=== PATIENT | female | born 1955 | race Caucasian/White ===

== ENCOUNTER 2020-10-22 10:30 | Emergency (ER) | payer MEDICARE, MEDICAID ==
[~2020-10-22] VITALS: Ht 129.5 cm; Wt 50.0 kg
[2020-10-22 10:33] VITALS: BP 136/77
[2020-10-22] MEDS ORDERED: LORazepam 1 MG tablet PO ONE (12:00)
[2020-10-22] MEDS ORDERED: LORazepam 0.5 MG tablet PO ONE (12:05)
--- NOTE | 2020-10-22 12:25 | NUR ---
PT not cooperative with diagnostics, ALBERT Tong aware.
== END 2020-10-22 13:20 | disposition home or self-care (01) ==
LOC: ER 10:31
DX: R07.81 Pleurodynia (principal); Q90.9 Down syndrome, unspecified; W18.39XA Other fall on same level, initial encounter; Y93.89 Activity, other specified; Y92.89 Other specified places as the place of occurrence of the external cause; Y99.8 Other external cause status
CPT/HCPCS: 99284

== ENCOUNTER 2024-06-23 14:13 | Emergency (ER) | payer MEDICARE, MEDICAID ==
[~2024-06-23] VITALS: Ht 132.1 cm; Wt 44.5 kg
[2024-06-23] MEDS: haloperidol lactate 5mg/ml inj IM ONE (15:23)
[2024-06-23] MEDS: normal saline 1000ML IV soln IV ONE (16:21)
[2024-06-23] MEDS: CefTRIAXone 2gm/D5W 50ml BAG 50 ML IV ONE (16:26)
[2024-06-23 16:33] LABS: BASOPHILS # (AUTO) 0.1 X10'3 (0-0.2); BASOPHILS % (AUTO) 0.8 % (0-1); EOSINOPHILS # (AUTO) 0.1 X10'3 (0-0.9); EOSINOPHILS % (AUTO) 1.7 % (0-6); HEMATOCRIT 43.6 % (35.0-45.0); HEMOGLOBIN 14.4 g/dl (12.0-16.0); LYMPHOCYTES # (AUTO) 1.3 X10'3 (1.1-4.8); LYMPHOCYTES % (AUTO) 19.9 % (21-51); MEAN CORPUSCULAR HEMOGLOBIN 34.2 PG (27.0-31.0); MEAN CORPUSCULAR HGB CONC 32.9 g/dL (33.0-36.5); MEAN CORPUSCULAR VOLUME 103.9 FL (78-98); MEAN PLATELET VOLUME 9.6 FL (7.4-10.4); MONOCYTES # (AUTO) 0.4 X10'3 (0-0.9); MONOCYTES % (AUTO) 6.6 % (2-12); NEUTROPHILS # (AUTO) 4.8 X10'3 (1.8-7.7); PLATELET COUNT 149 X10'3 (140-440); RED CELL DISTRIBUTION WIDTH 14.4 % (11.5-14.5); WHITE BLOOD COUNT 6.7 X10'3 (4.5-11.0)
[2024-06-23 16:43] LABS: BILIRUBIN,URINE SMALL (Neg); CLARITY,URINE SLIGHTLY CLOUDY (Clear); COLOR,URINE YELLOW (Yellow); GLUCOSE, URINE NEGATIVE (Neg); KETONES,URINE TRACE mg/dl (Neg); LEUKOCYTE ESTERASE ,URINE NEGATIVE (Neg); NITRITES, URINE NEGATIVE (Neg); OCCULT BLOOD,URINE NEGATIVE (Neg); PROTEIN,URINE NEGATIVE (Neg); UROBILINOGEN,URINE 0.2 E.U/dL (0.2-1.0)
[2024-06-23 16:45] LABS: ALBUMIN 3.1 G/DL (3.4-5.0); ANION GAP 6 (8-16); BLOOD UREA NITROGEN 17 MG/DL (7-18); BUN/CREATININE RATIO 17.5 (10.0-20.0); CALCIUM 9.1 MG/DL (8.5-10.1); CREATININE 0.97 MG/DL (0.40-0.90); GLUCOSE 113 MG/DL (70-104); MAGNESIUM 2.4 MG/DL (1.5-2.4); POTASSIUM 4.2 MMOL/L (3.5-5.1); SODIUM 149 MMOL/L (135-145); TOTAL CARBON DIOXIDE 30.6 MMOL/L (24-32); eCRCL 24 ML/MIN; eGFR 57 ML/MIN
[2024-06-23 16:48] LABS: MUCUS STRANDS MANY /LPF (Neg); SQUAMOUS EPITHELIAL CELL,UR FEW /LPF (FEW); UA COLLECTION TYPE NON-SPECIFIED
[2024-06-23 16:51] LABS: BACTERIA,URINE FEW /HPF (Neg); CAL OXALATE CRYSTALS 3+ /HPF (NEGATIVE); RBC,URINE 0-2 /HPF (0-2); WBC,URINE 0-4 /HPF (0-4)
[2024-06-23 16:52] LABS: CHLORIDE 112 MMOL/L (99-107)
[2024-06-23] MEDS: normal saline 1000ML IV soln IVB ONE (19:09)
[2024-06-23] MEDS: FOSFOMYCIN TROMETHAMINE 3 GM PACKET PO ONE (19:47)
[2024-06-23 22:29] VITALS: BP 107/75; PULSE 88; RESP 18; TEMP 98.2; O2SAT 98
== END 2024-06-23 22:31 | disposition home or self-care (01) ==
LOC: ER 14:13
DX: N39.0 Urinary tract infection, site not specified (principal); E86.0 Dehydration; R40.4 Transient alteration of awareness
CPT/HCPCS: 36415; 71045; 80048; 81001; 83605; 83735; 84145; 85025; 87040; 96361; 96365; 96366; 96372; 99285; C1758; J0696; J1630; J7030

== ENCOUNTER 2024-06-28 20:56 | Emergency (ER) | payer MEDICARE, MEDICAID ==
[~2024-06-28] VITALS: Ht 144.8 cm; Wt 44.8 kg
[2024-06-28] MEDS ORDERED: DIPH25CA83 PO (21:44)
[2024-06-28] MEDS ORDERED: KEN0.1O TOP (21:44)
[2024-06-28] MEDS ORDERED: PRED10TA23 PO (21:44)
[2024-06-28 22:08] VITALS: BP 140/80; PULSE 75; RESP 15; TEMP 98.1; O2SAT 97
== END 2024-06-28 22:10 | disposition home or self-care (01) ==
LOC: ER 20:57
DX: L42 Pityriasis rosea (principal); Z88.8 Allergy status to other drugs, medicaments and biological substances
CPT/HCPCS: 99284

== ENCOUNTER 2025-03-09 11:49 | Emergency (ER) | payer MEDICARE, MEDICAID ==
[~2025-03-09] VITALS: Ht 144.8 cm; Wt 55.0 kg
[~2025-03-09 11:49] MED LIST: DIPH25CA83 PO
--- NOTE | 2025-03-09 12:01 | ELECTROCARDIOGRAPH REPORT ---
[facility] Test Date: 2025-03-09 Test Time: 11:58:56 Pat Name: JOE SON Department: [facility]- Patient ID: [id number] Room: Gender: F Food Aide: : 1955 Requested By: DARLINE SLOAN Order Number: [id number] Reading MD: Measurements Intervals [place] Rate: 104 P: 71 ID: [id number] QRS: 55 QRSD: 106 T: 29 QT: 372 QTc: 490 Interpretive Statements Sinus tachycardia Ventricular premature complex Prolonged ID interval Probable left atrial enlargement Please click the below link to view image of tracing.
--- NOTE | 2025-03-09 12:12 | Physician Documentation ---
History of Present Illness ~ Chief Complaint: Mechanical Fall Stated Complaint: SZ Time Seen by MD: 11:50 HPI 69-year-old female with a history of Down syndrome presenting from a residential facility with a report of a seizure. The patient is nonverbal and can not provide history. See history was obtained from her head still operator who states that the patient was going to the bathroom when she suddenly had a seizure and fell forward. Patient hit her lip on the ground. The seizure lasted for several minutes and then resolved on its own. He states that initially the patient was very confused and out of it but now appears to be back at her normal baseline. Patient is nonverbal at baseline due to her down syndrome. No reports of any other injuries aside from slight swelling of her upper lip. Patient does have a history of seizures but has only had one other seizure many years ago. 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 CONST: Patient has features of Down syndrome, nonverbal and fidgety HENT: Head Atraumatic EYES: Pupils are equal, round and reactive to light. Normal conjunctiva NECK: Normal range of motion. Supple. CARDIO: Normal rate and regular rhythm. No murmurs, rubs, or gallops. S1, S2. PULM/CHEST: No respiratory distress. Lungs clear to auscultation. No wheeze ABD: Soft and nontender. Nondistended. Bowel sounds normal. No guarding. : Exam deferred MSK: No edema. No deformity. NEURO: Nonverbal, awake, does not converse or respond and listened to commands SKIN: Warm and dry. PSYCH: Patient visits around, avoids eye contact, nonverbal Progress Results/Orders Results/Orders Orders - DARLINE SLOAN MD Chest,Single View (03/09/25 12:40) Monitor (03/09/25 11:51) Saline Lock (03/09/25 11:51) Oxygen (03/09/25 11:51) Ct Head (03/09/25 14:16) Urinalysis (03/09/25 12:07) Hs Troponin I W Calculations (03/09/25 16:15) Completed Orders - DARLINE SLOAN MD Chest,Single View (03/09/25 12:40) Cbc/Diff (03/09/25 11:51) PBNP (03/09/25 11:51) Electrocardiogram (03/09/25 11:51) CMP (03/09/25 11:51) Hs Troponin I W Calculations (03/09/25 11:51) Hs Troponin I W Calculations (03/09/25 14:51) Diazepam Inj (Valium Inj) (03/09/25 12:05) Ct Head (03/09/25 14:16) Diazepam Inj (Valium Inj) (03/09/25 13:35) Medications Received in ER Medications (Trade) Dose Ordered Sig/Sabino Route PRN Reason Start Time Stop Time Status Last Admin Dose Admin (Valium inj) 5 mg ONCE ONCE IV 03/09/25 12:05 03/09/25 12:07 DC 03/09/25 12:15 5 MG (Valium inj) 5 mg ONCE ONCE IV 03/09/25 13:35 03/09/25 13:36 DC 03/09/25 13:57 5 MG Vital Signs 03/09/25 03/09/25 03/09/25 03/09/25 11:52 12:15 14:00 17:18 Temp 97.8 97.8 97.8 Pulse 66 69 68 Resp 16 18 18 18 B/P (MAP) 110/62 118/81 (93) 120/54 Pulse Ox 99 96 99 O2 Flow Rate 0 0 Laboratory Tests Test 03/09/25 13:14 03/09/25 15:33 White Blood Count 7.3 Red Blood Count 4.25 Hemoglobin 14.7 Hematocrit 42.6 Mean Corpuscular Volume 100.2 H Mean Corpuscular Hemoglobin 34.5 H Mean Corpuscular Hemoglobin Concent 34.4 Red Cell Distribution Width 13.0 Platelet Count 161 Mean Platelet Volume 8.7 Neutrophils (%) (Auto) 78.0 H Lymphocytes (%) (Auto) 13.0 L Monocytes (%) (Auto) 7.6 Eosinophils (%) (Auto) 0.5 Basophils (%) (Auto) 0.9 Neutrophils # (Auto) 5.7 Lymphocytes # (Auto) 1.0 L Monocytes # (Auto) 0.6 Eosinophils # (Auto) 0.0 Basophils # (Auto) 0.1 CBC Comment Sodium Level 140 Potassium Level 4.2 Chloride Level 104 Carbon Dioxide Level 25.9 Anion Gap 10 Blood Urea Nitrogen 14 Creatinine 0.91 H Estimated GFR/1.73 m2 61 BUN/Creatinine Ratio 15.4 Glucose Level 105 H Calcium Level 8.7 Total Bilirubin 0.4 Aspartate Amino Transf (AST/SGOT) 24 Alanine Aminotransferase (ALT/SGPT) 16 Alkaline Phosphatase 73 Troponin I High Sensitivity 7 9 Pro-B-Type Natriuretic Peptide 115 Total Protein 7.2 Albumin 3.3 L Globulin 3.9 Albumin/Globulin Ratio 0.8 L Chemistry Comments Troponin I High Sens Percent Delta 28 Troponin I Hi Sens Absolute Change 2 EKG/XRAY/CT/US/VASC/MRI EKG : Additional Comment EKG as interpreted by ED MD showing sinus tachycardia with a rate of 104 beats per minute, no ischemia, normal axis Chest X-Ray : Additional Comments EXAM: DI CHEST,SINGLE VIEW Indication: CP Technique: Single frontal view of the chest was obtained Comparison: DI CHEST,SINGLE VIEW on DOS: 06/23/24 FINDINGS: Lines and Tubes: None Lungs: No focal consolidation. Pleura: No effusion. No pneumothorax. Cardiomediastinal contours: Unremarkable Bones: No acute osseous abnormality. IMPRESSION: No acute cardiopulmonary disease. : Impression EXAM: CT CT HEAD INDICATION: seizure EXAM DATE: 03/09/2025 02:14 PM COMPARISON: None TECHNIQUE: CT of the head without intravenous contrast. Radiation Dose Information: CTDI volume is 45.34 mGy. Dose-length product is 946.76 mGy*cm FINDINGS: There is no evidence of acute intracranial hemorrhage, extra-axial collection, mass effect, midline shift, herniation or hydrocephalus. There is global atrophy with periventricular ischemic white matter changes. The ventricles, sulci and cisterns are age appropriate. The rae-white differentiation is intact. The visualized paranasal sinuses and mastoid air cells are clear. The surrounding soft tissues and osseous structures are unremarkable. IMPRESSION: 1. No evidence of acute intracranial hemorrhage, mass effect or hydrocephalus. 2. Global atrophy with periventricular ischemic white matter changes which is more pronounced at patient's chronological age. Medical Decision Making Additional Comment 69-year-old female presenting with a seizure. She does have a history of seizure although she has not had one for many years. Her workup here in the ED including labs and imaging including CT of the head are negative. The patient was a little bit agitated in the ED and was medicated with IV Valium. On reassessment the patient is comfortable and doing well. She did not have any repeat seizures. There is a possibility that she may have a urinary tract infection as there was a pungent odor from her urine. She did not provide us with a urine sample and refused a straight cath. At this point in time I believe it is prudent to treat the UTI empirically. I will prescribe the patient some nitrofurantoin. This possibility that the UTI could have induced the seizure. Patient is stable and safe for discharge back to her residential facility. I did advise and educate the head still operator and all of the findings and advised him of the plan. Patient will be discharged home. Follow up with PCP in the next 2-5 days. Return to the ED with any acutely worsening symptoms. Departure Disposition: 01 HOME / SELF CARE / HOMELESS Impression: Primary Impression: Seizure Additional Impression: UTI (urinary tract infection) Discharge Instructions: Non-Epileptic Seizures, Adult Additional Instructions: Take medications as prescribed. Follow up with primary care physician in the next 2-3 days. Return to the ED with any acutely worsening symptoms. Referrals: NO PRIMARY CARE PROVIDER (PCP) Prescriptions Nitrofurantoin Monohyd/M-Cryst (Macrobid 100 mg Capsule) 100 Mg Capsule 1 CAP PO Q12H for 7 Days, #14 CAP 0 Refills Prov: DARLINE SLOAN MD 03/09/25 Signature Scribe Signature: 1 Attestation: 1 DARLINE SLOAN MD March 09, 2025 12:12
[2025-03-09] MEDS: diazepam inj 5 MG/ML inj. IV ONE ×2 (12:15→13:57)
--- NOTE | 2025-03-09 12:58 | RADIOLOGY REPORT ---
EXAM: DI CHEST,SINGLE VIEW Indication: CP Technique: Single frontal view of the chest was obtained Comparison: DI CHEST,SINGLE VIEW on DOS: 06/23/24 FINDINGS: Lines and Tubes: None Lungs: No focal consolidation. Pleura: No effusion. No pneumothorax. Cardiomediastinal contours: Unremarkable Bones: No acute osseous abnormality. IMPRESSION: No acute cardiopulmonary disease.
[2025-03-09 13:58] LABS: BASOPHILS # (AUTO) 0.1 X10'3 (0-0.2); BASOPHILS % (AUTO) 0.9 % (0-1); EOSINOPHILS % (AUTO) 0.5 % (0-6); HEMATOCRIT 42.6 % (35.0-45.0); HEMOGLOBIN 14.7 g/dl (12.0-16.0); MEAN CORPUSCULAR HEMOGLOBIN 34.5 PG (27.0-31.0); MEAN CORPUSCULAR HGB CONC 34.4 g/dL (33.0-36.5); MEAN CORPUSCULAR VOLUME 100.2 FL (78-98); MEAN PLATELET VOLUME 8.7 FL (7.4-10.4); MONOCYTES # (AUTO) 0.6 X10'3 (0-0.9); MONOCYTES % (AUTO) 7.6 % (2-12); NEUTROPHILS # (AUTO) 5.7 X10'3 (1.8-7.7); PLATELET COUNT 161 X10'3 (140-440); RED BLOOD COUNT 4.25 X10'6 (4.20-5.60); WHITE BLOOD COUNT 7.3 X10'3 (4.5-11.0)
[2025-03-09 14:17] LABS: ALANINE AMINOTRANSFERASE 16 U/L (12-78); ALBUMIN 3.3 G/DL (3.4-5.0); ALBUMIN/GLOBULIN RATIO 0.8 (1.1-1.5); ALKALINE PHOSPHATASE 73 IU/L (46-116); ANION GAP 10 (8-16); ASPARTATE AMINO TRANSFERASE 24 U/L (10-37); BILIRUBIN,TOTAL 0.4 MG/DL (0.1-1.0); BLOOD UREA NITROGEN 14 MG/DL (7-18); BUN/CREATININE RATIO 15.4 (10.0-20.0); CALCIUM 8.7 MG/DL (8.5-10.1); CHLORIDE 104 MMOL/L (99-107); CREATININE 0.91 MG/DL (0.40-0.90); GLUCOSE 105 MG/DL (70-104); POTASSIUM 4.2 MMOL/L (3.5-5.1); PRO BRAIN NATRIURETIC PEPTIDE 115 PG/ML (0-125); SODIUM 140 MMOL/L (135-145); TOTAL CARBON DIOXIDE 25.9 MMOL/L (24-32); TOTAL PROTEIN 7.2 G/DL (6.4-8.2); eCRCL 36 ML/MIN; eGFR 61 ML/MIN
--- NOTE | 2025-03-09 14:34 | RADIOLOGY REPORT ---
EXAM: CT CT HEAD INDICATION: seizure EXAM DATE: 03/09/2025 02:14 PM COMPARISON: None TECHNIQUE: CT of the head without intravenous contrast. Radiation Dose Information: CTDI volume is 45.34 mGy. Dose-length product is 946.76 mGy*cm FINDINGS: There is no evidence of acute intracranial hemorrhage, extra-axial collection, mass effect, midline s hift, herniation or hydrocephalus. There is global atrophy with periventricular ischemic white matter changes. The ventricles, sulci and cisterns are age appropriate. The rae-white differentiation is i ntact. The visualized paranasal sinuses and mastoid air cells are clear. The surrounding soft tissues and osseous structures are unremarkable. IMPRESSION: 1. No evidence of acute intracranial hemorrhage, mass effect or hydrocephalus. 2. Global atrophy with periventricular ischemic white matter changes which is more pronounced at malik ent's chronological age.
[2025-03-09] MEDS ORDERED: NITR100C6 PO (17:14)
[2025-03-09 17:18] VITALS: BP 120/54; PULSE 68; RESP 18; TEMP 97.8; O2SAT 99
== END 2025-03-09 18:54 | disposition home or self-care (01) ==
LOC: ER 11:49
DX: R56.9 Unspecified convulsions (principal); N39.0 Urinary tract infection, site not specified; M19.90 Unspecified osteoarthritis, unspecified site; Z88.8 Allergy status to other drugs, medicaments and biological substances
CPT/HCPCS: 36415; 70450; 71045; 80053; 83880; 84484; 85025; 93005; 96374; 96376; 99285; J3360

== ENCOUNTER 2025-08-03 11:44 | Emergency (ER) | payer MEDICARE, MEDICAID ==
[~2025-08-03] VITALS: Ht 160 cm; Wt 44.0 kg
[~2025-08-03 11:44] MED LIST changes: +NITR100C6 PO
[2025-08-03 11:45] VITALS: BP 106/58
--- NOTE | 2025-08-03 11:58 | Physician Documentation ---
History of Present Illness General Chief Complaint: Seizure Stated Complaint: SZ Time Seen by MD: 11:50 OK to notify your PCP?: No Source: EMS, EMS notes reviewed Exam Limitations: other (Down syndrome) History of Present Illness Initial Comments 70-year-old female, with history of down syndrome, brought to the ED via EMS from [facility] with concerns of a witnessed seizure shortly prior to arrival. Patient was sitting in the chair when she had an approximate 9 minute seizure. She did not fall out of the chair or hit her head. The patient has a history of seizures, with two other seizures this year, however they normally last around 4 minutes. EMS reports the patient has been worked up for seizures but has never been placed on any medications. EMS adds that she has a history of combativeness. Unable to obtain complete history of present illness due to patient's Down syndrome. 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*, Seizures, Osteoarthritis Other Past Medical History: Down syndrome Past Surgical History: no surgical history Alcohol Use: None Drug Use: none Lives with: Other Lives In: Assisted Care Occupation: disabled Unable to obtain complete PMH: other (Down syndrome) Review of Systems Unable to obtain complete ROS: other (Down syndrome) Physical Exam Physical Exam Vital Signs: RN Vital Signs have been reviewed: Yes, Temperature: 98.5, Source: Temporal, Heart Rate: 91, Respiratory Rate: 18, BP: 106/58, Pulse Oximetry: 98, Weight: 44.000 Oxygen Flow Rate: 0 Pulse Oximetry Reflects: adequate oxygenation Physical Exam VITALS: Reviewed and as above. GENERAL: Active, nonverbal. No apparent distress. HEENT: Normocephalic, atraumatic, PERRL, EOMI, dry mucosa RESPIRATORY: Lungs clear, normal breath sounds, no respiratory distress. CHEST: No accessory muscle use, no retractions CV: Regular rate, rhythm, no edema, no murmur, No: JVD GI: Soft, non-tender, bowels sounds present, no rebound, guarding, or rigidity MUSCULOSKELETAL: No deformities, no edema SKIN: Warm and dry, no rash NEURO: Active, nonverbal. Follows simple commands. Moves all extremities. PSYCH: Unable to assess. Progress Results/Orders Reviewed/noted all lab results: Yes Results/Orders Completed Orders - OHLHE VILLARREAL MD Cbc/Diff (08/03/25 11:47) CMP (08/03/25 11:47) Levetiracetam-[id number]/100ml (Levetira (08/03/25 11:54) Vital Signs 08/03/25 08/03/25 08/03/25 11:45 12:53 13:52 Temp 98.5 98.5 Pulse 91 99 Resp 18 18 B/P (MAP) 106/58 Pulse Ox 98 96 O2 Flow Rate 0 0 Laboratory Tests Test 08/03/25 12:09 White Blood Count 5.7 Red Blood Count 4.14 L Hemoglobin 14.3 Hematocrit 42.5 Mean Corpuscular Volume 102.6 H Mean Corpuscular Hemoglobin 34.5 H Mean Corpuscular Hemoglobin Concent 33.6 Red Cell Distribution Width 13.6 Platelet Count 162 Mean Platelet Volume 8.5 Neutrophils (%) (Auto) 71.2 Lymphocytes (%) (Auto) 20.6 L Monocytes (%) (Auto) 6.1 Eosinophils (%) (Auto) 1.5 Basophils (%) (Auto) 0.6 Neutrophils # (Auto) 4.0 Lymphocytes # (Auto) 1.2 Monocytes # (Auto) 0.3 Eosinophils # (Auto) 0.1 Basophils # (Auto) 0.0 CBC Comment Sodium Level 144 Potassium Level 4.1 Chloride Level 107 Carbon Dioxide Level 32.6 H Anion Gap 4 L Blood Urea Nitrogen 18 Creatinine 0.88 Estimated GFR/1.73 m2 64 BUN/Creatinine Ratio 20.5 H Glucose Level 112 H Calcium Level 8.7 Total Bilirubin 0.5 Aspartate Amino Transf (AST/SGOT) 21 Alanine Aminotransferase (ALT/SGPT) 24 Alkaline Phosphatase 71 Total Protein 7.2 Albumin 3.2 L Globulin 4.0 Albumin/Globulin Ratio 0.8 L Chemistry Comments Medical Decision Making Additional information obtaine: old records (seen in February for seizure) Findings The patient presents with witnessed seizure with a witnessed postictal episode, the patient has had multiple episodes in the past at all sound like generalized tonic-clonic seizures given this finding the patient will be started on Keppra and the patient was loaded on Keppra, the case was discussed with the patient's care providers, the patient remained hemodynamically stable at her neurologic baseline prior hospitalizations were reviewed labs were reviewed pulse oximetry was interpreted as normal and adequate and her fiber technologist was interpreted as a sinus rhythm. The patient's CT from February was reviewed. Differential Diagnosis seizure encephalopathy Departure Time of Disposition: 12:39 Disposition: [facility] Impression: Primary Impression: Seizure disorder Condition: Stable Discharge Instructions: Seizure, Adult, [id number] Additional Instructions: Take keppra as prescribed. Follow up with patient's neurologist and primary care provider. Return to the ER for other concerns. Prescriptions Levetiracetam (Levetiracetam) 500 Mg Tablet 1 TAB PO Q12H for 30 Days, #60 TAB 0 Refills Prov: HE ESPARZA MD 08/03/25 Education Educated: Patient Educated regarding: diagnosis, treatment, need for follow up Signature Scribe Signature: Scribed for He Esparza MD by Leopoldo Bernardo . 08/03/25 12:08 Attestation: The note accurately reflects work and decisions made by me.He Esparza MD 08/04/25 06:51 HE ESPARZA MD Aug 03, 2025 11:58 LEOPOLDO BANKS Aug 03, 2025 12:29
[2025-08-03] MEDS: levetiracetam-NACL1000mg/100ml 100 ML IV STA (12:11)
[2025-08-03] MEDS ORDERED: LEVE500T PO (12:40)
[2025-08-03 12:42] LABS: MEAN PLATELET VOLUME 8.5 FL (7.4-10.4); RED CELL DISTRIBUTION WIDTH 13.6 % (11.5-14.5)
[2025-08-03 12:45] LABS: CREATININE 0.88 MG/DL (0.40-0.90); TOTAL CARBON DIOXIDE 32.6 MMOL/L (24-32); eCRCL 42 ML/MIN; eGFR 64 ML/MIN
[2025-08-03 12:53] VITALS: PULSE 99; RESP 18; O2SAT 96
[2025-08-03 13:52] VITALS: TEMP 98.5
== END 2025-08-03 13:09 ==
LOC: ER 11:44
DX: G40.909 Epilepsy, unspecified, not intractable, without status epilepticus (principal); M19.90 Unspecified osteoarthritis, unspecified site; Z88.0 Allergy status to penicillin; Z88.8 Allergy status to other drugs, medicaments and biological substances; Z79.899 Other long term (current) drug therapy
CPT/HCPCS: 36415; 80053; 85025; 96374; 99285; J1953